=== PATIENT | female | born 1985 | race Caucasian/White ===

== ENCOUNTER → 2017-01-27 | Outpatient (CLI) | payer BC, OTHER ==
[~2017-01-27] MED LIST: /VITACHEW PO; ACET500C PO; ANUS2.5C2 TOP; COLA100C PO; DOCU10ELUD PO; IBUP100SUS PO; IBUP200C PO; MOM30SS PO; TYLE325T5 PO
[2017-01-27 15:16] LABS: BASO % 0.6 % (0.0-1.0); EOS # 0.1 K/mm3 (0.0-0.50); EOS % 1.7 % (0.0-3.0); LARGE UNSTAINED CELL # 0.1 K/mm3 (0.0-0.4); LARGE UNSTAINED CELL % 1.9 % (0.0-4.0); LYMPH # 1.5 K/mm3 (1.5-4.5); LYMPH % 20.5 % (24.0-44.0); MEAN CORPUSCULAR HEMOGLOBIN 30.3 pg (27.0-33.0); MEAN CORPUSCULAR HGB CONC 34.6 g/dl (32.0-36.5); MEAN CORPUSCULAR VOLUME 87.6 fl (80.0-96.0); MONO # 0.2 K/mm3 (0.0-0.8); MONO % 2.9 % (0.0-5.0); NEUTROPHILS # 5.3 K/mm3 (1.8-7.7); NEUTROPHILS % 72.4 % (36.0-66.0); PLATELET COUNT, AUTOMATED 191 k/mm3 (150-450); RED CELL DISTRIBUTION WIDTH 12.4 % (11.5-14.5); WHITE BLOOD COUNT 7.4 K/mm3 (4.0-10.0)
[2017-01-27 22:51] LABS: CONTROL LINE INT CTR LINE PRESENT; HIV SCRN NEGATIVE (NEGATIVE); HIV SCRN1 NEGATIVE (NEGATIVE)
[2017-01-28 11:14] LABS: HBsAg Prenatal NEGATIVE (NEGATIVE)
== END ==
LOC: M LAB 14:12
PROVIDERS: ATTEND Advanced Practice Midwife
DX: Z34.81 Encounter for supervision of other normal pregnancy, first trimester (principal)

== ENCOUNTER → 2017-04-06 | Outpatient (CLI) | payer BC, OTHER ==
[~2017-04-06] MED LIST changes: -COLA100C PO; +COLA100C3 PO
--- NOTE | 2017-04-07 04:23 | REP ---
Clinical: Anatomical evaluation. Comparison: None . Findings: Examination demonstrates a single live intrauterine in breech presentation. motion is identified by technologist. Placenta is noted anteriorly and grade zero without evidence for placenta previa or abruption. Amniotic fluid volume is normal. Cervix measures 5.0 cm in length and appears closed. No evidence for nuchal cord. Gestational age by LMP 19 weeks 3 days with DANNY 08/28/2017 . Gestational age by current measurements 19 weeks 1 day with DANNY 08/30/2017 . FHR equals 160 beats per minute. BPD 4.4 cm 90 weeks 2 days HC 16.8 cm 19 weeks 3 days AC 14.2 cm 19 weeks 4 days FL 2.9 cm 19 weeks 0 days HL 2.8 cm 19 weeks 1 day HC/AC ratio 1.19 Estimated weight 286 grams ( 44th percentile). Anatomical assessment demonstrates normal structures including cranium, choroid plexus, cavum, cerebellum/posterior fossa, facial features, lungs, four-chamber heart/ventricular outflow tracts, diaphragm, stomach, cord insertion/three-vessel cord, bladder, spine, and extremities. Suggestions for bilateral renal pelviectasis. Impression: 1. Single live intrauterine in breech presentation. 2. Anatomical assessment is essentially normal as described above. Mild renal pelviectasis cannot be excluded and may warrant followup. 3. Possible small posterior succenturiate lobe to the placenta. Signed by Gómez Dorantes MD 04/07/2017 04:15 A
== END ==
LOC: M SMT 12:53
PROVIDERS: ATTEND Advanced Practice Midwife
DX: Z13.79 Encounter for other screening for genetic and chromosomal anomalies (principal)

== ENCOUNTER → 2017-06-29 | Outpatient (CLI) | payer BC, OTHER ==
[~2017-06-29] MED LIST changes: +ACET50TA PO; -COLA100C3 PO; +COLA100C5 PO; +IBUP-1114 PO; -IBUP200C PO; +IBUP200C10 PO; +SERT25TA PO
--- NOTE | 2017-06-30 06:50 | REP ---
Clinical: Succenturiate lobe. Evaluate for vasa previa. Technique: Limited transabdominal obstetrical ultrasound. Comparison: 04/06/2017. Findings: Current examination again demonstrates a single live advanced gestation in breech presentation. motion was identified. heart rate equals 141 beats per minute. Placenta is identified anteriorly and grade 1 with small left lateral placental succenturiate lobe. The cervix measures 3.7 cm in length and appears closed. No funneling. No evidence for placenta previa or vasa previa. Impression: Findings as described above. No evidence for placenta previa or vasa previa. Signed by Gómez Dorantes MD 06/30/2017 06:41 A
== END ==
LOC: M SMT 09:47
PROVIDERS: ATTEND Specialist
DX: O69.4XX0 Labor and delivery complicated by vasa previa, not applicable or unspecified (principal)

== ENCOUNTER → 2017-08-04 | Outpatient (REF) | payer OTHER | LOC: M LAB REF 13:14 | PROVIDERS: ATTEND Specialist | DX: Z34.83 Encounter for supervision of other normal pregnancy, third trimester (principal) ==

== ENCOUNTER 2017-08-20 17:36 | Outpatient (CLI) | payer BC, OTHER ==
[~2017-08-20] VITALS: Ht 149.9 cm; Wt 69.0 kg
[~2017-08-20 17:36] MED LIST changes: -ACET50TA PO; -IBUP-1114 PO; -SERT25TA PO
[2017-08-20 17:52] VITALS: BP 125/75
[2017-08-20] MEDS ORDERED: SERT25TA PO (17:59)
== END 2017-08-20 18:30 | disposition home or self-care (01) ==
LOC: M LDO 17:36
PROVIDERS: ATTEND Advanced Practice Midwife
DX: O47.1 False labor at or after 37 completed weeks of gestation (principal); Z3A.38 38 weeks gestation of pregnancy

== ENCOUNTER 2017-09-03 22:02 | Inpatient (IN) | payer BC, OTHER ==
[~2017-09-03 22:02] MED LIST changes: +SERT25TA PO
[2017-09-03 23:25] LABS: MEAN CORPUSCULAR HGB CONC 30.6 g/dl (32.0-36.5); RED CELL DISTRIBUTION WIDTH 15.4 % (11.5-14.5); WHITE BLOOD COUNT 10.1 10^3/uL (4.0-10.0)
[2017-09-03 23:38] LABS: MEAN CORPUSCULAR VOLUME 74.9 fl (80.0-96.0)
[2017-09-04] VITALS (7 sets, daily range): BP systolic 105–128; BP diastolic 57–75
[2017-09-04] MEDS ORDERED: LR 1,000 ML IV SCH (01:10)
[2017-09-04] MEDS ORDERED: OXYTOCIN DRIP 30 UNITS in APPROPRIATE DILUENT 1 EA IV SCH (01:15)
[2017-09-04] MEDS ORDERED: OXYTOCIN DRIP 30 UNITS in APPROPRIATE DILUENT 1 EA IV ONE (04:15)
[2017-09-04] MEDS ORDERED: IBUPROFEN 800 MG TAB PO PRN (04:15)
[2017-09-04] MEDS ORDERED: ACETAMINOPHEN 500 MG TAB PO PRN (04:15)
[2017-09-04] MEDS ORDERED: MEASLES,MUMPS,RUBELLA VACCINE INJ (MMR-II) (90707) SC SCH (04:15)
[2017-09-04] MEDS ORDERED: DIBUCAINE 1% OINTMENT 30GM TOP PRN (04:15)
[2017-09-04] MEDS ORDERED: RHOGAM 300 MCG (1500 IU) INJ (J2790) IM SCH (04:15)
[2017-09-04] MEDS ORDERED: METHYLERGONOVINE MALEATE 0.2 MG TAB PO PRN (04:15)
[2017-09-04] MEDS ORDERED: DOCUSATE SODIUM 100 MG CAP PO PRN (04:15)
[2017-09-04] MEDS ORDERED: ONDANSETRON 4MG/2ML VIAL (J2405) IV PRN (04:15)
[2017-09-04 04:18] LABS: CORD GAS O2 SAT A < 15.0 %; CORD GAS PO2 A < 10.0 mmHg
[2017-09-04 04:19] LABS: CORD GAS ABE V -10.3; CORD GAS PH V 7.253 UNITS; CORD GAS PO2 V 29.3 mmHg; CORD GAS SBC V 15.6 MEQ/L; CORD GAS TCO2 V 17.1 MEQ/L
[2017-09-04 04:22] LABS: CORD GAS ABE A -12.2; CORD GAS HCO3 A 20.1 MEQ/L; CORD GAS PCO2 A 77.2 mmHg; CORD GAS PH A 7.033 UNITS; CORD GAS TCO2 A 22.4 MEQ/L
[2017-09-04] MEDS ORDERED: LIDOCAINE 1% MDV INJ 50 ML VIAL As Ordered ONE (04:28)
[2017-09-04] MEDS: PRENATAL VITAMINS CHEWABLE TABLET PO SCH (08:25)
--- NOTE | 2017-09-04 11:38 | HPE ---
DATE OF ADMISSION: 09/03/2017 HISTORY: 32-year-old (G) 3, para (P) 2-0-0-2 female at 40-6/7 weeks gestation by last menstrual period (LMP) consistent with 11-week ultrasound, estimated date of confinement (EDC) of 08/28/2017, presents with leakage of fluid for the last several hours, as well as increasing contractions. She denies vaginal bleeding. There is good movement. COURSE: The patient initiated care at 11 weeks gestation on 02/07/2017. Her first trimester blood pressure was 122/70, weight 130 pounds. She had a succenturiate lobe noted on ultrasound. She had negative screening for invasive previa. The rest of her course was unremarkable. OBSTETRICAL HISTORY: 1. November 2012: 41-week vaginal delivery, 7 pound 6 ounce female infant. 2. May 2014: 41-week vaginal delivery, 7 pound 3 ounce female infant. MEDICAL HISTORY: Noncontributory. SURGICAL HISTORY: None. ALLERGIES: None. SOCIAL HISTORY: The patient is . She lives in [place]. She denies cigarettes, alcohol or drug use. FAMILY HISTORY: Noncontributory. PHYSICAL EXAMINATION: VITAL SIGNS: Blood pressure 124/74, pulse 84. She appears moderately uncomfortable. HEAD/NECK: Examination normal. LUNGS: Clear. HEART: Regular rate and rhythm. ABDOMEN: Nontender. Gravid. heart tones category 1. STERILE VAGINAL EXAMINATION: Grossly ruptured, clear fluid noted, 4 cm, 100% effaced, -2 station, vertex. EXTREMITIES: Nontender. Contractions every 4 minutes. ASSESSMENT: 32-year-old (G) 3, para (P) 2 female at 40-6/7 weeks gestation presents with ruptured membranes in early labor. The patient is admitted on 09/03/2017.
--- NOTE | 2017-09-04 11:39 | DN ---
DATE: 09/04/2017 PREDELIVERY DIAGNOSIS: 41 week gestation, labor. POSTDELIVERY DIAGNOSIS: Delivered. PROCEDURE: Outlet vacuum-assisted vaginal delivery. LPTA: Dr. Jimmie Max ANESTHESIA: None. ESTIMATED BLOOD LOSS: 300 mL. FINDINGS: 7 pound 9 ounce male infant, scores of 5, 6, and 9. DELIVERY SUMMARY: After a 10 minute second stage, the patient was diagnosed with arrest of descent at +3 station. Kiwi vacuum was applied. Delivery was accomplished with a single controlled contraction along with maternal effort. Loose nuchal cord times one was reduced. Moderate shoulder dystocia was encountered. This was relieved with McRobert's maneuver and suprapubic pressure. The cord was doubly clamped and cut. The was handed to the nurses. Placenta delivered spontaneously and appeared to be intact. The patient received IV Pitocin immediately after delivery of the placenta. First degree perineal laceration was repaired under local anesthesia with #2-0 chromic in the usual fashion. Sponge and needle counts were correct.
[2017-09-05 06:00] VITALS: BP 102/59
[2017-09-05] MEDS: PRENATAL VITAMINS CHEWABLE TABLET PO SCH (08:00)
[2017-09-05] MEDS ORDERED: IBUP-1114 PO (09:04)
[2017-09-05] MEDS ORDERED: ACET50TA PO (09:04)
== END 2017-09-05 15:00 | disposition home or self-care (01) | DRG 560 ==
LOC: M LDO 22:02 → M LDI 22:42 → M OBS 09-04 06:15
PROVIDERS: ADMIT Specialist; ATTEND Specialist
PROC: 10D07Z6 Extraction of Products of Conception, Vacuum, Via Natural or Artificial Opening (ICD-10-PCS; principal; 2017-09-04)
PROC: 0HQ9XZZ Repair Perineum Skin, External Approach (ICD-10-PCS; 2017-09-04)
DX: O48.0 Post-term pregnancy (principal); O32.4XX0 Maternal care for high head at term, not applicable or unspecified; Z37.0 Single live birth; Z3A.41 41 weeks gestation of pregnancy; O69.82X0 Labor and delivery complicated by other cord entanglement, without compression, not applicable or unspecified; O66.0 Obstructed labor due to shoulder dystocia; O70.0 First degree perineal laceration during delivery

== ENCOUNTER → 2019-03-29 | Outpatient (REF) | payer OTHER ==
[~2019-03-29] MED LIST changes: -/VITACHEW PO; -DOCU10ELUD PO; +DOCU5LIQ PO; +FLIN1CHW3 PO; +IBUP-1114 PO; +IBUP100S44 PO; -IBUP100SUS PO; -IBUP200C10 PO; +IBUP200C25 PO; +MAPA500T2 PO; -SERT25TA PO; +SERT25TA85 PO
[2019-03-29 16:56] LABS: HEMATOCRIT 44.4 % (36.0-47.0); HEMOGLOBIN 14.6 g/dl (12.0-15.5); MEAN CORPUSCULAR HEMOGLOBIN 29.3 pg (27.0-33.0); MEAN CORPUSCULAR HGB CONC 32.9 g/dl (32.0-36.5); PLATELET COUNT, AUTOMATED 196 10^3/uL (150-450); RED BLOOD COUNT 4.99 10^6/uL (4.00-5.40); WHITE BLOOD COUNT 5.5 10^3/uL (4.0-10.0)
== END ==
LOC: M SFHCCLAY 09:35
PROVIDERS: ATTEND Family Medicine
DX: F32.2 Major depressive disorder, single episode, severe without psychotic features (principal); F41.9 Anxiety disorder, unspecified

== ENCOUNTER → 2019-04-03 | Outpatient (REF) | payer OTHER ==
[2019-04-05 14:27] LABS: HPV HYBRID CAPTURE II Negative (Negative)
== END ==
LOC: M LAB REF 13:30
PROVIDERS: ATTEND Specialist
DX: Z12.4 Encounter for screening for malignant neoplasm of cervix (principal)
CPT/HCPCS: 87624; G0123

== ENCOUNTER → 2020-09-10 | Outpatient (REF) | payer OTHER ==
[2020-09-11 12:39] LABS: HEMATOCRIT 44.4 % (36.0-47.0); HEMOGLOBIN 14.6 g/dl (12.0-15.5); MEAN CORPUSCULAR HEMOGLOBIN 29.4 pg (27.0-33.0); MEAN CORPUSCULAR HGB CONC 32.9 g/dl (32.0-36.5); MEAN CORPUSCULAR VOLUME 89.3 fl (80.0-96.0); PLATELET COUNT, AUTOMATED 173 10^3/uL (150-450); RED BLOOD COUNT 4.97 10^6/uL (4.00-5.40); WHITE BLOOD COUNT 7.6 10^3/uL (4.0-10.0)
[2020-09-11 14:00] LABS: ALBUMIN 4.3 GM/DL (3.2-5.2); ALT/SGPT 22 U/L (12-78); BILIRUBIN,TOTAL 0.5 MG/DL (0.2-1.0); BLOOD UREA NITROGEN 8 MG/DL (7-18); CALCIUM LEVEL 9.4 MG/DL (8.5-10.1); CARBON DIOXIDE LEVEL 25 MEQ/L (21-32); CHLORIDE LEVEL 108 MEQ/L (98-107); CREATININE FOR GFR 0.78 MG/DL (0.55-1.30); GLOMERULAR FILTRATION RATE > 60.0 (>60); GLUCOSE, FASTING 86 MG/DL (70-100); POTASSIUM SERUM 6.8 MEQ/L (3.5-5.1); SODIUM LEVEL 137 MEQ/L (136-145); TOTAL PROTEIN 7.5 GM/DL (6.4-8.2)
== END ==
LOC: M SFHCCLAY 14:15
PROVIDERS: ATTEND Physician Assistant
DX: R42 Dizziness and giddiness (principal)

== ENCOUNTER → 2020-09-12 | Outpatient (REF) | payer OTHER | LOC: M SFHCCLAY 13:28 | PROVIDERS: ATTEND Physician Assistant | DX: E87.5 Hyperkalemia (principal) ==

== ENCOUNTER → 2021-08-12 | Outpatient (REF) | payer OTHER | LOC: M SFHCWAGY 12:48 | PROVIDERS: ATTEND Specialist | DX: R30.0 Dysuria (principal) ==

== ENCOUNTER → 2022-04-23 | Outpatient (REF) | payer OTHER ==
[2022-04-23 15:34] LABS: FREE T4 0.88 NG/DL (0.76-1.46); THYROID STIMULATING HORMONE 1.05 uIU/ML (0.358-3.740)
== END ==
LOC: M SFHCCLAY 12:14
PROVIDERS: ATTEND Family Medicine
DX: Z00.00 Encounter for general adult medical examination without abnormal findings (principal); E66.3 Overweight; R35.0 Frequency of micturition

== ENCOUNTER → 2022-06-15 | Outpatient (REF) | payer OTHER ==
[2022-06-15 17:15] LABS: HEMATOCRIT 41.9 % (36.0-47.0); HEMOGLOBIN 13.9 g/dl (12.0-15.5); MEAN CORPUSCULAR HEMOGLOBIN 30.1 pg (27.0-33.0); MEAN CORPUSCULAR HGB CONC 33.2 g/dl (32.0-36.5); MEAN CORPUSCULAR VOLUME 90.7 fl (80.0-96.0); PLATELET COUNT, AUTOMATED 186 10^3/uL (150-450); RED BLOOD COUNT 4.62 10^6/uL (4.00-5.40); WHITE BLOOD COUNT 6.5 10^3/uL (4.0-10.0)
[2022-06-15 18:21] LABS: ALT/SGPT 15 U/L (12-78); BILIRUBIN,TOTAL 0.4 MG/DL (0.2-1.0); BLOOD UREA NITROGEN 10 MG/DL (7-18); CALCIUM LEVEL 9.4 MG/DL (8.5-10.1); CARBON DIOXIDE LEVEL 27 MEQ/L (21-32); CHLORIDE LEVEL 108 MEQ/L (98-107); CHOLESTEROL LEVEL 150 MG/DL (<200); CHOLESTEROL RISK RATIO 1.948 (<5); CREATININE FOR GFR 0.82 MG/DL (0.55-1.30); GLOMERULAR FILTRATION RATE > 60.0 (>60); GLUCOSE, FASTING 79 MG/DL (70-100); HDL CHOLESTEROL 77 MG/DL (>40); LDL CHOLESTEROL 53 MG/DL (<100); NON-HDL-C 73 MG/DL; POTASSIUM SERUM 4.6 MEQ/L (3.5-5.1); SODIUM LEVEL 140 MEQ/L (136-145); TOTAL PROTEIN 7.2 GM/DL (6.4-8.2); TRIGLYCERIDES LEVEL 98 MG/DL (<150)
== END ==
LOC: M SFHCCLAY 13:51
PROVIDERS: ATTEND Nurse Practitioner Family
DX: E66.3 Overweight (principal)

== ENCOUNTER → 2023-03-09 | Outpatient (REF) | payer OTHER | LOC: M PLALAB 12:36 | PROVIDERS: ATTEND Nurse Practitioner Family | DX: Z12.4 Encounter for screening for malignant neoplasm of cervix (principal); N76.0 Acute vaginitis | CPT/HCPCS: 87624; G0123 ==

== ENCOUNTER → 2023-03-23 | Outpatient (CLI) | payer BC, OTHER | LOC: M WHC 07:33 | PROVIDERS: ATTEND Nurse Practitioner Family | DX: N63.32 Unspecified lump in axillary tail of the left breast (principal) ==

== ENCOUNTER → 2024-09-21 | Outpatient (REF) | payer BC ==
[2024-09-21 19:54] LABS: FREE T4 1.33 NG/DL (0.89-1.76)
[2024-09-21 19:55] LABS: THYROID STIMULATING HORMONE 1.937 uIU/ML (0.55-4.78)
[2024-09-21 19:58] LABS: ALBUMIN 4.1 G/DL (3.2-5.2); ALKALINE PHOSPHATASE 66 U/L (35-104); ALT/SGPT 17 U/L (7.0-40); AST/SGOT 9 U/L (<34); BILIRUBIN,TOTAL 0.8 MG/DL (0.3-1.2); BLOOD UREA NITROGEN 10 MG/DL (9-23); CALCIUM LEVEL 9.8 MG/DL (8.5-10.1); CARBON DIOXIDE LEVEL 27 MMOL/L (20-31); CHLORIDE LEVEL 108 MMOL/L (98-107); CHOLESTEROL LEVEL 146 MG/DL (<200); CHOLESTEROL RISK RATIO 2.31 (<5); CREATININE FOR GFR 0.75 MG/DL (0.55-1.30); GLOMERULAR FILTRATION RATE > 60.0 (>58); GLUCOSE, FASTING 76 MG/DL (60-100); HDL CHOLESTEROL 63.2 MG/DL (>40); LDL CHOLESTEROL 72.2 MG/DL (<100); NON-HDL-C 82.8 MG/DL; POTASSIUM SERUM 4.8 MMOL/L (3.5-5.1); SODIUM LEVEL 139 MMOL/L (136-145); TOTAL PROTEIN 7.3 G/DL (5.7-8.2); TRIGLYCERIDES LEVEL 53 MG/DL (<150)
== END ==
LOC: M SFHCCLAY 10:23
PROVIDERS: ATTEND Nurse Practitioner Family
DX: F41.8 Other specified anxiety disorders (principal); E66.3 Overweight; R53.82 Chronic fatigue, unspecified

== ENCOUNTER → 2024-09-25 | Outpatient (CLI) | payer BC | LOC: M WHC 07:10 | PROVIDERS: ATTEND Nurse Practitioner Family | DX: Z12.31 Encounter for screening mammogram for malignant neoplasm of breast (principal); R92.333 Mammographic heterogeneous density, bilateral breasts ==

== ENCOUNTER → 2025-10-31 | Outpatient (REF) | payer BC ==
[2025-10-31 12:45] LABS: CHOLESTEROL LEVEL 118.0 MG/DL (<200); CHOLESTEROL RISK RATIO 2.19 (<5); IRON (FE) 13.0 UG/DL (50-170); LDL CHOLESTEROL 50.8 MG/DL (<100); NON-HDL-C 64.2 MG/DL; PERCENT SATURATION 5.0 % (13.2-45.0); TRIGLYCERIDES LEVEL 67.0 MG/DL (<150)
[2025-10-31 12:52] LABS: BASO # 0.0 10^3/uL (0.0-0.2); BASO % 0.4 % (0.0-1.0); EOS # 0.1 10^3/uL (0.0-0.5); EOS % 1.6 % (0.0-3.0); LYMPH # 1.6 10^3/uL (1.5-5.0); LYMPH % 23.3 % (24.0-44.0); MONO # 0.5 10^3/uL (0.0-0.8); MONO % 7.0 % (2.0-8.0); NEUTROPHILS # 4.7 10^3/uL (1.5-8.5); NEUTROPHILS % 67.4 % (36.0-66.0); PLATELET COUNT, AUTOMATED 157 10^3/uL (150-450)
== END ==
LOC: M SFHCCLAY 08:56
PROVIDERS: ATTEND Nurse Practitioner Family
DX: E66.3 Overweight (principal)